=== PATIENT | male | born 1955 | race Caucasian/White ===

== ENCOUNTER → 2017-02-02 | Outpatient (CLI) | payer OTHER ==
[2017-02-06 00:35] LABS: IGA SERUM 232 mg/dL (81-463); TIS TRANS IGA 1 U/mL (<4)
== END | disposition home or self-care (01) ==
LOC: C.LAB1850 14:14
PROVIDERS: ATTEND Physician Assistant
DX: R19.7 Diarrhea, unspecified (principal)